=== PATIENT | male | born 1950 | race Caucasian/White ===

== ENCOUNTER 2024-01-09 17:39 | Inpatient (IN) | payer MEDICARE, OTHER, SELFPAY ==
[2024-01-09] VITALS (8 sets, daily range): BP systolic 124–163; BP diastolic 74–103; BMI 36.0
--- NOTE | 2024-01-09 15:11 | ED.GENMED ---
History of Present Illness
General
Chief Complaint: Heart Rate Problem
Source: patient and spouse
Time Seen by Provider: 01/09/24 15:00
Travel History
Have you had any contact with someone who has COVID-19?: No
Do you have any symptoms of coronavirus? Fever > 100 degrees, chills, cough, shortness of breath, sore throat, loss of taste or smell, muscle aches, or headache?: No
History of Present Illness
History of Present Illness:
73-year-old male with past medical history of hypertension, hyperlipidemia, AAA status postrepair in 2014 presenting to the emergency department from urgent care for evaluation after he has noticed over the last week some significant exertional
dyspnea, fatigue and shortness of breath. While at the urgent care today patient had a heart rate that was in the 30s which he states is abnormal for him. In triage here patient also had a heart rate of 30 but at time of my exam he noted his heart
rate was back into the 70s and 80s. No known history of bradycardia. He denies any fevers or infectious symptoms, rashes, chest pain, palpitations, diaphoresis, nausea, vomiting, bowel changes or urinary symptoms. He follows with casting operator helper,
Dr. Bettencourt. Social history noncontributory
Past History
Past History
ED Past Medical History: HTN, Hypercholesterolemia, Psychiatric and Other (AAA)
ED Past Surgical History: Cardiac, Orthopedic and Other
Social History
Tobacco: Other (Occasional)
Alcohol: Occasional
Drug: None
Personal:
Living: with family
Family History
Family History: CAD; Negative Early CAD
Review of Systems
Review of Systems
All Other Systems: ROS reviewed and negative except as documented in HPI and ROS
Phy Exam
Physical Exam
Physical Exam:
GENERAL: Alert , in no apparent distress
EYE: clear conjunctiva b/l
HEAD: NCAT
ENT: o/p clr, mmm.
CARDIAC: Regular rate and rhythm .
LUNGS: Clear breath sounds bilaterally, no acute respiratory distress, no wheezes/rales/rhonchi
ABDOMEN: Soft, without focal tenderness, no r/g, no cvat
NEUROLOGICAL: Alert and oriented
SKIN: Warm and dry, skin intact.
MUSCULOSKELETAL: Trace nonpitting ankle edema bilateral, well perfused.
PSYCH: Normal and appropriate interaction.
Scores
Heart Failure Risk
Heart Failure Risk Score: Not Applicable
Heart Score for Chest Pain Patients
STEMI patient?: Not applicable
Withdrawal Assessment of Alcohol
Withdrawal Assessment Completed?: Not applicable
Course
Orders/Labs/Results
Orders:
Orders
01/09/24 14:19
EKG [Electrocardiogram (*1)] Urgent
Reason for Study: Bradycardia / Tachycardia
EKG- Treatment ONCE
01/09/24 15:08
Add On- LAB Urgent
Tests Added?: BNP
CR Chest - 2 Views Urgent
Comment:
Reason For Exam: SOB, LUCAS
01/09/24 15:14
Complete Blood Count/With Diff Urgent
Comprehensive Metabolic Panel Urgent
NT-proBNP Urgent
Comment: ADD ON
Troponin I Urgent
01/09/24 16:35
Furosemide [Lasix] 40 mg IV NOW STA
01/09/24 17:20
Admit/Transfer Patient As Directed
Co-Sign Provider:
Level of Care: Inpatient admission
Assign to:: Telemetry
Physician / Group: Hospitalist
Diagnosis: CHF
Reason for Telemetry: Acute Heart Failure
Date to Stop Telemetry: 01/12/24
Time to Stop Telemetry: 11:00
Reason for Hospitalization: CHF
Expected length of stay greater than two midnights?: Yes
ELOS- Estimated Length of Stay in days: 2
I certify the patient meets the requirements for IP care: Yes
Code Status As Directed
Resuscitation Status: Full Code
01/09/24 17:24
Add On- LAB Stat
Tests Added?: D-dimer
01/09/24 18:00
Atorvastatin [Lipitor] 80 mg PO QPM
Ezetimibe [Zetia] 10 mg PO QPM
Flush (0.9% Sodium Chloride) [Flush (Nss)] See Dose Instructions IV PER PROTOCOL
01/10/24 08:00
Aspirin Low Dose EC [Aspir Low (Enteric Coated)] 81 mg PO DAILY
Metoprolol Xl [Toprol Xl] 50 mg PO DAILY
01/12/24 11:00
DC Protocol for Telemetry ONCE
Abnormal Lab Results
01/09/24
15:14
Abs Immat Gran (auto) 0.2 H 10^3/uL
(0-0.05)
Absolute Neuts (auto) 7.4 H 10^3/uL
(1.4-6.5)
Absolute Monos (auto) 1.1 H 10^3/uL
(0.1-0.6)
Immature Gran % 1.5 H %
(0-0.5)
Lymphocytes % 14.3 L %
(20.5-51.1)
Monocytes % 10.8 H %
(1.7-9.3)
BUN 30 H mg/dl
(9-20)
Glucose 104 H mg/dl
(70-99)
01/09/24 15:14
01/09/24 15:14
Vital Signs
Initial and Last Documented VS:
Initial Vital Signs
Temp Pulse Resp BP Pulse Ox
99.1 F 36 18 124/80 96
01/09/24 14:15 01/09/24 14:15 01/09/24 14:15 01/09/24 14:15 01/09/24 14:15
Last Documented Vital Signs
Temp Pulse Resp BP Pulse Ox
99.1 F 76 22 157/101 96
01/09/24 14:15 01/09/24 17:04 01/09/24 16:45 01/09/24 17:04 01/09/24 16:45
MDM/Problems Addressed
Differential Diagnosis Includes:
Symptomatic bradycardia, cardiac dysrhythmia, electrolyte disturbance, CHF, valvular dysfunction, ACS
MDM/Problems Addressed:
73-year-old male presenting the emergency department for evaluation of exertional dyspnea and shortness of breath/fatigue that has been ongoing for about 1 week. While at urgent care today he was noticed to be bradycardic and upon arrival to the
emergency department here he was also bradycardic but at time of my exam patient appears to be rate controlled however on telemetry he looks to be in a junctional rhythm as no P waves were identified and his twelve-lead EKG confirms this. No acute
ischemic changes. Labs and chest x-ray ordered. Patient to be kept on the nuclear monitoring technician. Ultimate plan will likely be admission for further evaluation.
*Radiology
Radiology exam reviewed: preliminary read by ED provider (Cardiomegaly)
*Pulse Oximetry
Patient hypoxic: no
*EKG
Interpreted by ED Provider?: Yes
Comparison EKG: changes noted
Heart Rate: 83
Rate: normal
Rhythm: junctional
[place]: normal axis
Ischemia: no ischemia
*Imcu Specialist Interpretation
Rate: normal
Rhythm: junctional
*Critical Care Note
Total Time (30-74mins, 75-104mins- exclusive of procedures): Not Applicable
Data Reviewed
Review of Other/Old Records Reveals: Labs and Records
Source: patient and spouse
Patient Management
Discussion with other providers: Hospitalist
Escalation/DeEscalation of care consider admission/obs:
Patient's telemetry remains a junctional rhythm. His BNP is greater than 1800 and chest x-ray shows cardiomegaly. 40 mg of Lasix IV ordered for diuresis. Hospitalist team was notified and accepts for continued evaluation and treatment. They can
consult cardiology team as needed.
ED Attending Note
-
Portions of this chart may have been created with voice recognition software.� Occasional wrong word or��sound alike� substitutions may have occurred due to the inherent limitations of voice recognition software.
Discharge Plan
Departure
Patient Disposition: Admit
Date of Disposition: 01/09/24
Time of Disposition: 16:35
Presentation/result/management discussed w/ accepting MD/DO: Hospitalist
Discharge Problem:
CHF (congestive heart failure)
Prescriptions:
No Action
metoprolol succinate 50 MG tablet extended release 24 hr
50 mg PO DAILY
multivitamin with folic acid [Tab-A-Gian] 1 TABLET tablet
1 tab PO DAILY
atorvastatin 80 mg Tablet
80 mg PO QPM
lisinopril-hydrochlorothiazide 20-12.5 mg Tablet
1 tab PO DAILY
aspirin 81 mg Tablet,Delayed Release (Dr/Ec)
81 mg PO DAILY
ezetimibe [Zetia] 10 mg Tablet
10 mg PO QPM
acetaminophen 500 MG tablet
1,000 mg PO Q6HPRN PRN (Reason: mild pain)
Referrals:
Narinder Noble DO [Family Provider] -
Interventions
Interventions:
*Risk Screen - Suicide Last Done: 01/09/24 16:54
*General Assessment Last Done: 01/09/24 14:15
*Neglect/Abuse Screening Last Done: 01/09/24 15:10
*ED COVID-19 Vaccine History Last Done: 01/09/24 14:15
ED- Cardiac Assessment Last Done: 01/09/24 15:10
ED- Pulmonary Assessment Last Done: 01/09/24 15:10
Discharge Date and Time
Print Language: MOHAWK
[2024-01-09 15:22] LABS: % Basophils 0.6 % (0-2); % Eosinophils 0.7 % (0-6); % Immature Granulocytes 1.5 % (0-0.5); % Lymphocytes 14.3 % (20.5-51.1); % Monocytes 10.8 % (1.7-9.3); % Neutrophils 72.1 % (42.2-75.2); Absolute Basophils 0.1 10^3/uL (0-0.2); Absolute Eosinophils 0.1 10^3/uL (0-0.7); Absolute Immature Granulocytes 0.2 10^3/uL (0-0.05); Absolute Lymphocytes 1.5 10^3/uL (1.2-3.4); Absolute Monocytes 1.1 10^3/uL (0.1-0.6); Absolute Neutrophils 7.4 10^3/uL (1.4-6.5); Hematocrit 44.7 % (39.0-52.0); Mean Corp Hgb Conc. 33.6 g/dL (33.0-37.0); Mean Corpuscular Hgb 30.8 pg (27.0-31.0); Mean Corpuscular Volume 91.8 fL (80.0-94.0); Mean Platelet Volume 9.1 fL (7.4-10.4); Nucleated Red Blood Cells % 0 % (-); Platelet Count 256 10^3/uL (130-400); Red Blood Cell Count 4.87 10^6/uL (4.70-6.10); Red Cell Dist. Width 13.1 % (11.5-14.5); White Blood Cell Count 10.3 10^3/uL (4.8-10.8)
[2024-01-09 15:33] LABS: ALT (SGPT) 29 U/L (0-50); AST (SGOT) 27 U/L (17-59); Albumin 4.1 g/dl (3.5-5.0); Alkaline Phosphatase 78 U/L (38-126); Blood Urea Nitrogen 30 mg/dl (9-20); Calcium 9.7 mg/dl (8.4-10.2); Carbon Dioxide 25 mmol/L (22-30); Chloride 107 mmol/L (98-107); Glucose 104 mg/dl (70-99); Potassium 4.9 mmol/L (3.5-5.1); Sodium 138 mmol/L (135-145); Total Bilirubin 0.9 mg/dl (0.2-1.3); Total Protein 6.9 g/dl (6.3-8.2); eGFR > 60.00
[2024-01-09 15:50] LABS: Troponin I < 0.012 ng/ml
[2024-01-09 16:20] LABS: NT-proBNP 1800 pg/ml
[2024-01-09] MEDS: LASIX 40 MG IV (17:04)
--- NOTE | 2024-01-09 17:06 | HPS.HSE ---
Family Physician
-
Family Physician: Narinder Noble
Chief Complaint
-
Dyspnea on exertion
History of Present Illness
This is a 73-year-old male with past medical history significant for hypertension, hyperlipidemia, obesity, AAA s/p repair who presents to the emergency department with several days of dyspnea on exertion.
Patient reported being in usual state of health up until about 2 weeks ago. He is able to walk 1 mile on the treadmill without any issues. However for about the last 5 days the patient has reported dyspnea on exertion with walking across his yard.
He reports dyspnea on exertion with walking to the restroom. He also reports some mild dyspnea on exertion with a flight of stairs. Denies any orthopnea or PND but states he has been sleeping in a lazy boy chair more recently. He reports a cough
and some postnasal drip. Denies fevers or chills. Denies productive cough. He denies any chest pain with deep inspiration or coughing. He denies any significant lower extremity edema. Spouse reported that he has mild ankle edema which has been
present for several years. Patient denies having any chest pain nausea or vomiting. Patient denies palpitations. He indeed reports an episode of feeling lightheaded while sitting and working today.
He was particularly weak today and spouse checked his blood pressure which was 90 systolic. He was then taken to urgent care. They report that at urgent care a orthopedic headache to the 30s. He was then instructed to come to the emergency
department. Patient denies any prior history of NC. He apparently had an episode of atrial fibrillation during his endovascular procedure for his AAA repair which resolved at that time and has not had any symptoms since.
On arrival in the emergency department the patient was febrile with a temp of 99.1, blood pressure was 124/80, pulse was 74 and oxygen saturation was 95% on room air. ECG showed a junctional rhythm at a rate of [address] or T wave
changes. Initial troponin was reported 012. BNP was 1800. Chest x-ray shows no acute infiltrates. CBC was completely within normal limits. Chemistries otherwise unremarkable.
Medical History
Past Medical History
Past Medical History: Reports HTN and Hypercholesterolemia
Past Surgical History: Reports Other (AAA s/p EVAR )
Social History
Tobacco: Former Smoker
Alcohol: Occasional
Drug: None
Personal:
Living: With Family
Employment: Retired
Family History
Family History: CAD and Hypertension
Allergies / Home Medications
Allergies reflects when Allergies were last updated in [employer].
Home Medications with original date entered in [employer]
Allergy/Medication List:
Allergies
Allergy/AdvReac Type Severity Reaction Status Date / Time
No Known Allergies Allergy Verified 07/06/23 07:12
Home Medications
metoprolol succinate 50 mg tablet,extended release 24 hr 50 mg PO DAILY Heart Disease/Condition 12/23/19
aspirin 81 mg tablet,delayed release 81 mg PO DAILY Blood Clot Prevention/Tx 06/30/23
atorvastatin 80 mg tablet 80 mg PO QPM High Cholesterol 06/30/23
lisinopril 20 mg-hydrochlorothiazide 12.5 mg tablet 1 tab PO HS Blood Pressure 06/30/23
Review of Systems
-
History Source: Patient
Constitutional: Reports Fatigue
Respiratory: Reports Cough and Trouble Breathing
Cardiac: Reports Other (Dyspnea on exertion)
Abdomen/GI: Reports No Symptoms
: Reports No Symptoms
Musculoskeletal: Reports No Symptoms
Skin: Reports No Symptoms
Neurological: Reports No Symptoms
Endocrine: Reports No Symptoms
Hematologic/Lymphatic: Reports No Symptoms
Psych: Reports No Symptoms
Physical Exam
Vital Signs
Vital Signs
Temp Pulse Resp BP Pulse Ox
99.1 F 74 22 147/87 96
01/09/24 14:15 01/09/24 16:45 01/09/24 16:45 01/09/24 16:42 01/09/24 16:45
Physical Exam
General: Well Developed, Well Nourished, No Apparent Distress and Obese
HEENT: NormoCephalic, Anicteric, Moist mucous membranes, Atraumatic, PERRLA and Neck Nontender
Respiratory: Clear, Non Labored Respirations and Clear to Percussion
Cardiac: S1/S2 and Regular Rhythm
Breast: Deferred by me
GI: Soft, Non Tender and Normal Bowel Sounds
Rectal: Deferred by Provider
Genito-urinary: Deferred by me
Musculoskeletal: No Clubbing, No Cyanosis and No Edema
Skin: Warm
Neuro: AO x 3
Hematologic/Lymphatic: No Lymphadenopathy
Psych: Calm
Laboratory Results
-
01/09/24 15:14
01/09/24 15:14
Laboratory Results
Total Bilirubin 0.9 mg/dl (0.2-1.3) 01/09/24 15:14
AST 27 U/L (17-59) 01/09/24 15:14
ALT 29 U/L (0-50) 01/09/24 15:14
Alkaline Phosphatase 78 U/L (38-126) 01/09/24 15:14
Troponin I < 0.012 ng/ml 01/09/24 15:14
Data Reviewed
-
Diagnostic Radiology: Image Personally Visualized and interpreted
Medical Tests (Nuc Med, Echo, EKG etc): Image Personally Visualized and interpreted
Lab Data: Labs Reviewed by me
Old Records: Reviewed
Impression/Plan
-
IMPRESSION:
73 y.o male with h/o HTN, HLD, Obesity and AAA s/p repair presenting with approximately 1 week h/o of worsening dyspnea on exertion with episode of bradycardia noted at Urgent Care clinic. Exam is unrevealing. Positive findings are the junctional
rhythm on ECG accelerated at rate 86, BNP elevated to 1800 concerning for possible new onset CHF versus symptomatic bradycardia. Cannot rule out an anginal equivalent but initial troponin is negative ruling out ACS.
PLAN:
1. CHF/ischemic heart disease - Trace ankle edema, dyspnea on exertion, elevated BNP. Normal troponin.
- admit to telemetry, monitor for emmett but patient has been hemodynamically stable.
- lasix 40mg iv daily for now
- echo in am
- cardiology consult
- continue lisinopril 20 with hold parameters
- ischemic testing with lipid panel a1c and stress test per cardiology
- check tsh
2. LUCAS - Cough but no pleuritic chest pain. Chest Xray is clear of any consolidation. No wheezing on auscultation
- cardiac etiology to be evaluated as above
- check d-dimer
- supportive care with antitussives and antiallergics
3. HTN
- continue lisinopril, hold hctz for now on lasix
- continue metoprolol succinate
DVT PPX - lovenox sq
Code Status - Full Code
[2024-01-09] MEDS: ZETIA 10 MG PO (18:35)
[2024-01-09] MEDS: LIPITOR 80 MG PO (18:35)
--- NOTE | 2024-01-09 20:40 | PTCARENOTE ---
Received patient from ED. stable vitals. No complaints at this time. Heart failure booklet provided. SR with first degree AVB Vs juctional rhythm on tele, HR in 80s. POC reviewed with patient.
[2024-01-09] MEDS: LOVENOX 40 MG SC (21:09)
[2024-01-10 03:20] VITALS: BP 112/65
[2024-01-10 06:00] VITALS: BMI 35.5
[2024-01-10 07:30] VITALS: BP 128/78
[2024-01-10 07:53] LABS: Blood Urea Nitrogen 31 mg/dl (9-20); Calcium 9.7 mg/dl (8.4-10.2); Carbon Dioxide 26 mmol/L (22-30); Chloride 105 mmol/L (98-107); Estimated Creatinine Clearance 72 ml/min; Glucose 113 mg/dl (70-99); HDL Cholesterol 49 mg/dl; LDL Cholesterol, Calculated 56 mg/dl; Potassium 4.5 mmol/L (3.5-5.1); Sodium 139 mmol/L (135-145); Total Cholesterol 131 mg/dl (50-199); Triglyceride 131 mg/dl (10-149); Very Low Density Lipoprotein 26 mg/dl (0-30); eGFR > 60.00
[2024-01-10 08:23] LABS: TSH Reflex To Free T4 1.19 uIU/ml (0.47-4.68)
[2024-01-10] MEDS: ASPIR LOW (ENTERIC COATED) 81 MG PO (08:31)
[2024-01-10] MEDS: TOPROL XL 50 MG PO (08:31)
[2024-01-10] MEDS: LASIX 40 MG IV (08:31)
[2024-01-10] MEDS: ZESTRIL 20 MG PO (08:31)
[2024-01-10] MEDS: FLUSH (NSS) 2 FLUSH IV (08:33)
[2024-01-10 11:30] VITALS: BP 119/73
--- NOTE | 2024-01-10 12:21 | W.PN.HOSP.TC ---
Today's Communication/Plan
-
see bold
Assessment / Plan
Assessment / Plan
Gen: NAD, AAOx3.
Eyes: EOMI, PERRLA, no scleral icterus.
Neck: supple.
CV: RRR, +S1/S2, no m/r/g.
Resp: CTAB, no rales, wheezes, or rhonchi.
Abd: +BS, soft, NT, ND
Skin: No rashes.
Neuro: CN 2-12 intact, non-focal.
Psych: Normal mood and affect.
CXR: Mild cardiomegaly without associated pulmonary edema.
Acute CHF/ischemic heart disease:
-on admission, trace ankle edema, dyspnea on exertion, elevated BNP. Normal troponin
-ECG (read by me): accelerated junctional rhythm at 83, no acute ischemic changes. Evidence of prior inferior infarct with Q waves in III and aVF
-trend trops, currently NEG
-c/s cards
-check echo
-cont IV Lasix
-TSH normal
-I/Os, daily wts
Mobitz II second-degree heart block:
-For echocardiogram followed by permanent pacemaker tomorrow as per discussion with Dr. Walker.
Essential HTN:
-cont BB/ACEi
Case discussed with cardiology. Patient's updated at bedside.
FULL/Lovenox
Anticipated Discharge: 24 - 48 hours
Subjective/Interval History
-
Date of Service: January 10, 2024
Denies chest pain or shortness of breath.
Objective Data
-
Labs:
Laboratory Results
01/10/24
07:02
Sodium 139
Potassium 4.5
Chloride 105
Carbon Dioxide 26
BUN 31 H
Creatinine 1.2
Glucose 113 H
Calcium 9.7
Vital Signs:
Vital Signs
Temp Pulse Resp BP Pulse Ox
97.6 F 66 20 128/78 94
01/10/24 07:30 01/10/24 07:30 01/10/24 07:30 01/10/24 07:30 01/10/24 07:30
I&O
01/09/24 01/10/24 01/11/24
06:59 06:59 06:59
Intake Total 960 / 960
Output Total 950 / 950
Balance
[2024-01-10 13:15] LABS: Troponin I < 0.012 ng/ml
--- NOTE | 2024-01-10 13:45 | CON.CAR ---
Consultation
Consultation Request
Date/Time Consultation Requested: 01/10/2024
Date/Time Consultation Performed: 01/10/2024
Requesting Provider: Dr. Call
Performing Provider: Dr. Walker
Reason for Consultation: Possible CHF, Abnormal EKG
Medical History
-
Chief Complaint: Shortness of breath, lightheadedness
History of Present Illness:
73-year-old male (known to Dr. Bonner, his primary Hyperbaric Tech) with hypertension, hyperlipidemia, obesity, and AAA status-post EVAR (07/2023) with postoperative brief/transient paroxysmal atrial fibrillation (not on systemic anticoagulation due
to lack of recurrence) presenting with shortness of breath and lightheadedness/near-syncope over the past week. The patient states that he has been noticing shortness of breath when doing things, particularly working on his yard outside. He also
has lightheadedness and blurred vision when he does exert himself himself, and almost feels like he is going to pass out. On admission the patient had junctional rhythm on EKG, and on telemetry he has what appears to be transient Mobitz 2/high
degree AV block. Cardiology was consulted for concern of CHF; his BNP was 1800.
Past Medical History
Past Medical History: HTN, Hypercholesterolemia and Other (AAA status-post EVAR)
Past Surgical History: Orthopedic (Right TKR, right hip replacement) and Other ( EVAR, umbilical hernia repair)
Social History
Tobacco: Former Smoker (Remote)
Alcohol: Daily (1 drink)
Drug: None
Personal:
Living: With Family
Employment: Retired
Family History
Family History: Reviewed & Not Pertinent
Allergies / Home Medications
Allergy/AdvReac Type Severity Reaction Status Date / Time
No Known Allergies Allergy Verified 07/06/23 07:12
�Medication �Instructions �Recorded �Confirmed �Type
metoprolol succinate 50 mg 50 mg PO DAILY Heart 12/23/19 01/09/24 History
tablet,extended release 24 hr Disease/Condition
multivitamin with folic acid 400 1 tab PO DAILY Supplement 01/02/20 01/09/24 History
mcg tablet (Tab-A-Gian)
aspirin 81 mg tablet,delayed 81 mg PO DAILY Blood Clot 06/30/23 01/09/24 History
release Prevention/Tx
atorvastatin 80 mg tablet 80 mg PO QPM High Cholesterol 06/30/23 01/09/24 History
lisinopril 20 1 tab PO DAILY Blood Pressure 06/30/23 01/09/24 History
mg-hydrochlorothiazide 12.5 mg
tablet
acetaminophen 500 mg tablet 1,000 mg PO Q6HPRN PRN mild pain 01/09/24 01/09/24 History
ezetimibe 10 mg tablet (Zetia) 10 mg PO QPM High Cholesterol 01/09/24 01/09/24 History
Review of Systems
-
History Source: Patient
All other systems: Negative unless noted
Physical Exam
Vital Signs
Temp Pulse Resp BP Pulse Ox
98.5 F 80 16 119/73 98
01/10/24 11:30 01/10/24 11:30 01/10/24 11:30 01/10/24 11:30 01/10/24 11:30
Lab Results
01/09/24 15:14
01/10/24 07:02
Troponin I < 0.012 ng/ml 01/10/24 12:40
Iec-J-Eszeebylkrc Pept 1800 pg/ml 01/09/24 15:14
Physical Exam
General: No Apparent Distress and Comfortable
HEENT: Normocephalic
Respiratory: Clear
Cardiac: S1/S2, Regular Rhythm and Peripheral Edema (Trace)
Breast: N/A
GI: Soft
Rectal: Deferred by Provider
Musculoskeletal: No Clubbing, No Cyanosis and Edema (Trace)
Skin: Warm and Dry
Neuro: AO x 3
Psych: Calm
Impression / Plan
-
73-year-old male (known to Dr. Bonner, his primary Hyperbaric Tech) with hypertension, hyperlipidemia, obesity, and AAA status-post EVAR (07/2023) with postoperative brief/transient paroxysmal atrial fibrillation (not on systemic anticoagulation due
to lack of recurrence) presenting with shortness of breath and lightheadedness/near-syncope over the past week. The patient states that he has been noticing shortness of breath when doing things, particularly working on his yard outside. He also
has lightheadedness and blurred vision when he does exert himself himself, and almost feels like he is going to pass out. On admission the patient had junctional rhythm on EKG, and on telemetry he has what appears to be transient Mobitz 2/high
degree AV block. Cardiology was consulted for concern of CHF; his BNP was 1800.
Mobitz 2/high degree AV block:
-Likely cause of patient's near-syncope.
-Patient will undergo an echocardiogram tomorrow; if unremarkable, will then undergo permanent pacemaker implantation tomorrow.
-Will hold Toprol-XL for now.
-Continue desk monitor.
-NPO after midnight.
Suspected acute CHF (BNP 1800):
-Type unknown.
-Will obtain echocardiogram tomorrow.
-Continue Lasix 40 mg IV daily for now.
Hypertension:
-Continue current dose of lisinopril.
-On Lasix as above.
Hyperlipidemia:
-Controlled.
-Continue high-dose atorvastatin and Zetia.
Obesity:
-Counseled on the importance of weight loss and regular exercise.
Data Reviewed
-
EKG: Tracing Personally Visualized and interpreted (Junctional rhythm; intermittent high-degree AV block on telemetry)
Labs: Labs Reviewed by me
Old Records: Reviewed (Cardiology office note 10/2023)
[2024-01-10 15:30] VITALS: BP 117/79
--- NOTE | 2024-01-10 15:31 | CM ---
Initial assessment completed with pt at bedside.
Pt is a 73yr old admitted with CHF. Will get pacemaker Thursday
At baseline, pt lives with his in a 2 story home with 4 steps to enter.
Pt is indep. without assistive device for all mobility and ADLs.
Pt has not ever used SNF/VN
PCP; Narinder Noble
Pharm; [facility] [phone]
PLAN; anticipate dc to home with no needs
[2024-01-10] MEDS: LIPITOR 80 MG PO (16:50)
[2024-01-10] MEDS: ZETIA 10 MG PO (16:50)
[2024-01-10] MEDS: LOVENOX SC ×2 (16:50→16:59)
[2024-01-10 19:00] VITALS: BP 112/73
[2024-01-10 23:00] VITALS: BP 99/66
[2024-01-11] VITALS (9 sets, daily range): BP systolic 98–152; BP diastolic 58–99; BMI 35.8
--- NOTE | 2024-01-11 07:25 | W.PN.CD ---
Today's Communication / Plan
-
- PPM today
Impression / Plan
-
73-year-old male (known to Dr. Bonner, his primary Inside Sales Executive) with hypertension, hyperlipidemia, obesity, and AAA status-post EVAR (07/2023) with postoperative brief/transient paroxysmal atrial fibrillation (not on systemic anticoagulation due
to lack of recurrence) presenting with shortness of breath and lightheadedness/near-syncope over the past week. The patient states that he has been noticing shortness of breath when doing things, particularly working on his yard outside. He also
has lightheadedness and blurred vision when he does exert himself himself, and almost feels like he is going to pass out. On admission the patient had junctional rhythm on EKG, and on telemetry he has what appears to be transient Mobitz 2/high
degree AV block. Cardiology was consulted for concern of CHF; his BNP was 1800.
Mobitz 2/high degree AV block:
-Likely cause of patient's near-syncope.
-Will hold Toprol-XL for now. restart post implant
-Continue patient monitor.
-PPM today
Suspected acute CHF (BNP 1800):
-HFpEF - could be related to conduction diseaese
-ECHO 01/11/24- LVEF 60% - Normal biventricular size and systolic function without regional wall motion
abnormality.
Mitral sclerosis without stenosis..
-Continue Lasix 40 mg IV daily for now.
Hypertension:
-Continue current dose of lisinopril.
-On Lasix as above.
Hyperlipidemia:
-Controlled.
-Continue high-dose atorvastatin and Zetia.
Obesity:
-Counseled on the importance of weight loss and regular exercise.
Physical Exam
Vital Signs/Labs
Vital Signs
Temp Pulse Resp BP Pulse Ox
98.3 F 75 16 107/68 95
01/11/24 03:00 01/11/24 03:00 01/11/24 03:00 01/11/24 03:00 01/11/24 03:00
01/10/24 01/11/24 01/12/24
06:59 06:59 06:59
Actual Weight 118.473 kg 119.522 kg
01/09/24 15:14
Triglycerides 131 mg/dl (10-149) 01/10/24 07:02
LDL Cholesterol, Calc 56 mg/dl 01/10/24 07:02
VLDL Cholesterol, Calc 26 mg/dl (0-30) 01/10/24 07:02
HDL Cholesterol 49 mg/dl 01/10/24 07:02
01/09/24
15:14
Zjr-W-Ubsqjjinkfg Pept 1800
LAB Results
01/09/24 01/10/24
15:14 12:40
Troponin I < 0.012 < 0.012
Physical Exam
Constitutional: No acute distress and Comfortable
EENT: Anicteric and Moist mucous membranes
Cardiovascular: Rhythm & rate is regular, Pedal edema is absent and JVD pressure is normal
Respiratory: Respiratory effort normal, Wheeze Absent and Crackles Absent
GI: Soft, Non tender and Normal bowel sounds
Neuro/Psych: Alert, Oriented, AO x 3 and Motor deficits absent
Other: Cardiac Device Site
Data Reviewed
-
Date of Service: January 11, 2024
Medical Decision Making: Reviewed Test Results, Independent Historian Assessment, Test Interpretation and Review of Case with other Provider
EKG: Tracing Personally Visualized and interpreted
Echo: Report Reviewed by me
Labs: Labs Reviewed by me
Old Records: Reviewed
--- NOTE | 2024-01-11 07:54 | W.PN.HOSP.TC ---
Today's Communication/Plan
-
see bold, discussed with cardiology
Assessment / Plan
Assessment / Plan
Gen: NAD, AAOx3.
Eyes: EOMI, PERRLA, no scleral icterus.
Neck: supple.
CV: remains RRR, +S1/S2, no m/r/g.
Resp: remains CTAB, no rales, wheezes, or rhonchi.
Abd: remains +BS, soft, NT, ND
Skin: No rashes.
Neuro: CN 2-12 intact, non-focal.
Psych: Normal mood and affect.
CXR: Mild cardiomegaly without associated pulmonary edema.
Echo: Normal biventricular size and systolic function without regional wall motion abnormality. Mitral sclerosis without stenosis.
Acute CHF/ischemic heart disease:
-on admission, trace ankle edema, dyspnea on exertion, elevated BNP. Normal troponin
-ECG (read by me): accelerated junctional rhythm at 83, no acute ischemic changes. Evidence of prior inferior infarct with Q waves in III and aVF
-Trops NEG x 2
-cards following
-echo above
-cont IV Lasix
-TSH normal
-I/Os, daily wts
Mobitz II second-degree heart block:
-For permanent pacemaker (hopefully today)
Essential HTN:
-cont BB/ACEi
Pt's updated at bedside.
FULL/Lovenox
Anticipated Discharge: 24 - 48 hours
Subjective/Interval History
-
Date of Service: January 11, 2024
Denies CP/SOB.
Objective Data
-
Labs:
Laboratory Results
01/11/24
07:07
Sodium Pending
Potassium Pending
Chloride Pending
Carbon Dioxide Pending
BUN Pending
Creatinine Pending
Glucose Pending
Calcium Pending
Vital Signs:
Vital Signs
Temp Pulse Resp BP Pulse Ox
97.9 F 66 16 128/73 96
01/11/24 07:05 01/11/24 07:05 01/11/24 07:05 01/11/24 07:05 01/11/24 07:05
I&O
01/10/24 01/11/24 01/12/24
06:59 06:59 06:59
Intake Total 960 / 960 1050 / 1050
Output Total 950 / 950 1350 / 1350
Balance -300 / -300
[2024-01-11] MEDS: LASIX 40 MG IV (07:58)
[2024-01-11] MEDS: ASPIR LOW (ENTERIC COATED) 81 MG PO (07:58)
[2024-01-11] MEDS: ZESTRIL 20 MG PO (07:58)
[2024-01-11 08:30] LABS: Blood Urea Nitrogen 35 mg/dl (9-20); Calcium 9.6 mg/dl (8.4-10.2); Carbon Dioxide 31 mmol/L (22-30); Chloride 102 mmol/L (98-107); Estimated Creatinine Clearance 66 ml/min; Glucose 115 mg/dl (70-99); Sodium 140 mmol/L (135-145); eGFR 57.29
--- NOTE | 2024-01-11 08:35 | CARDSERVLU ---
Echocardiogram with Lumason completed after protocol screening completed. Allergies verified.
Patent IV site: ____left AC
IV site flushed with 0.9% NaCl pre and post administration.
Diluted bolus method utilized to enhance visualization of ventricular alfaro.
Total volume given: ___4.0 mL
Patient tolerated all procedures well without complications.
--- NOTE | 2024-01-11 10:02 | CM ---
Reviewed chart, patient for pacemaker placement today. Will f/u post procedure.
Plan: Case management will continue to follow and assist with discharge planning. Tentative plan is for patient to return home when medically clered for discharge.
--- NOTE | 2024-01-11 16:49 | ITS.CL.PACE ---
Mechanical Test Engineer - Pacemaker Implant
Pacemaker Implant
Procedure Report:
Dual Chamber Pacemaker Placement:
Mr. Simpson is a very pleasant 74 yrs old gentleman with h/o post op AFIB, hypertension, hyperlipidemia, obesity, and AAA status-post EVAR (07/2023) presented with advanced AV block and pre-syncope and is recommended for PPM placement.�
Indications: Advanced AV block
Date of the Procedure: 01/11/2024
Pre-Operative Diagnosis: High degree AV block
Post-Operative Diagnosis: High degree AV block
Procedure Performed: DUAL CHAMBER PACEMAKER IMPLANTATION
Performing Physician:
Abrahan Olson MD
Anesthesia:
See anesthesia records
Pre-operative antibiotics:
Ancef 3 gram
Detailed Description of the Procedure:
The patient was identified using hospital identification and informed consent obtained for the procedure. The risks were explained including, but not limited to: Bleeding, infection, arrhythmia, stroke, vascular/cardiac/lung puncture, surgery,
pacemaker dependency/device malfunction. All questions were answered.
The patient was brought to the electrophysiology laboratory in stable condition in fasting state. Continuous electrocardiographic and hemodynamic monitoring was initiated.
The initial rhythm was sinus rhythm.
The procedure site was meticulously prepared with surgical scrub and allowed to dry with no pooling. Sterile draping was applied to cover the procedure site. The image intensifier was draped with sterile bag and positioned over the patient.
A surgical pause and time out was performed immediately prior to the procedure with review of her medical history, recent labs, allergies and medications with site of procedure identified and consent noted in the chart. Antibiotics pre operatively
given. All team members concurred.
The left infraclavicular region was prepped and draped in the usual sterile fashion. Local anesthesia was administered subcutaneously using 1% lidocaine / Bupivacaine. The left cephalic vein cutdown was performed with an incision at the
delto-pectoral groove, and vascular sheaths were introduced for lead access. These were advanced into the right ventricle and the right atrium.
The right ventricular lead was secured in position with an active fixation technique at the septal location.
The RA lead was attached in the right atrial appendage with active fixation in the RAA.
There was excellent sensing, pacing, and impedance from the leads, with no diaphragmatic stimulation at 10 V output.�Bovie cautery, antibiotics, and fluoroscopy were used.
The sheaths were withdrawn, and the thresholds remained acceptable. The leads were secured in position at the venous entry site with 0-Ethibond. A pocket was fashioned contiguous to the incision. The electrode terminals were connected to the pulse
generator, which was placed into the pocket. The generator was secured to the underlying fascia.
The wound was irrigated thoroughly with antibiotic solution.
The wound was closed in 3 layers using 2-0 V loc then two layers of 4-0 VLoc sutures to the dermis. Steri-strips were applied externally and covered with Aquacel bandage.
Procedure End:
The procedure was tolerated well.
Estimated Blood loss:
5 cc
Specimens Removed:
No cultures and no specimens were obtained. No intraoperative pathology was identified.
Urine output:
None
Packs / Drains/ Tubes:
None
Instrument / Sponge Count Correct:
Yes
Complications of the Procedure:
None
Condition of Patient at Time of Transfer:
Hemodynamically stable with no neurological or vascular compromise.
Device information:�
Generator: [employer]; Model: [id number]; Serial #[id number]
Atrial Lead: [employer]; Model: 2088TC/52; Serial # [id number]
Measured data in the right atrium was sensing of 2.1mV, impedance of 510 ohms and threshold of 0.75V at 0.4ms�
RV Lead: [employer]; Model: 2088TC/58; Serial # [id number]
Measured data in the RV lead was sensing of >12.0 mV, impedance of 700 ohms and threshold of 1.0 V at 0.4ms�
Tyshawn parameter settings were DDDR 60-130 bpm. �
��������������� Mode Switch: On
��������������� Paced AV interval: 420ms
��������������� Sensed AV interval: 400 ms.
��������������� VIP: On
Summary:
Successful implantation of MRI compatible dual chamber St Mannie pacemaker
Results/Recommendations:
-Please follow up CXR�
1. Please provide patient with adequate pain control�
Instructions to be given to patient:�
- Please follow up with [facility] at [address] [place] [address] ([phone]) to get your wound checked within 14 days of your discharge.
- Do not wet incision site until after it is evaluated at cardiology clinic. No soaking or bath until then. Showers or Sponge baths are OK.�Dab dry the area after a shower.
- Do not lift left elbow above shoulder, particularly with sudden jerking movements, for 1 month�
- Do not lift anything weighing more than 10 pounds with the left arm for 1 month�
- If you notice any fevers, shortness of breath, lightheadedness, chest pain, or worsening swelling in the wound site, please contact the arrhythmia clinic, contact your sales technician home theater, or present to the hospital for evaluation.�
Abrahan Olson MD
Electrophysiology
[2024-01-11] MEDS: ZETIA 10 MG PO (18:00)
[2024-01-11] MEDS: LIPITOR 80 MG PO (18:00)
[2024-01-11] MEDS: LOVENOX 40 MG SC (18:00)
[2024-01-11] MEDS: TYLENOL 650 MG PO (20:31)
[2024-01-11] MEDS: ANCEF 5 IV (21:17)
[2024-01-12 03:13] VITALS: BP 125/81
[2024-01-12] MEDS: ANCEF 5 IV (05:18)
[2024-01-12 05:51] VITALS: BMI 35.7
[2024-01-12 07:25] LABS: Hematocrit 47.8 % (39.0-52.0); Hemoglobin 16.2 g/dL (13.0-18.0); Mean Corp Hgb Conc. 33.9 g/dL (33.0-37.0); Mean Corpuscular Hgb 29.8 pg (27.0-31.0); Mean Platelet Volume 8.8 fL (7.4-10.4); Platelet Count 280 10^3/uL (130-400); Red Blood Cell Count 5.43 10^6/uL (4.70-6.10); White Blood Cell Count 10.9 10^3/uL (4.8-10.8)
[2024-01-12 07:28] VITALS: BP 142/95
[2024-01-12 07:52] LABS: Blood Urea Nitrogen 41 mg/dl (9-20); Calcium 9.6 mg/dl (8.4-10.2); Carbon Dioxide 21 mmol/L (22-30); Chloride 104 mmol/L (98-107); Estimated Creatinine Clearance 71 ml/min; Glucose 134 mg/dl (70-99); Sodium 136 mmol/L (135-145); eGFR > 60.00
[2024-01-12] MEDS: ZESTRIL 20 MG PO (08:19)
[2024-01-12] MEDS: LASIX 40 MG IV (08:19)
[2024-01-12] MEDS: ASPIR LOW (ENTERIC COATED) 81 MG PO (08:19)
--- NOTE | 2024-01-12 09:58 | W.PN.HOSP.TC ---
Addendum entered and electronically signed by Alexandre Call MD 01/12/24 11:24:
Case discussed with Dr. Olson and he has cleared the pt for discharge.
Total time spent on d/c = 32 min. This included today's physical exam, progress note, review of laboratory and diagnostic data, preparation of discharge documents and prescriptions, and discussions about the pt's hospital course and discharge plan
with the patient and other medical transcriber involved in the patient's care.
Original Note:
Today's Communication/Plan
-
see bold
Assessment / Plan
Assessment / Plan
Gen: NAD, AAOx3.
Eyes: EOMI, PERRLA, no scleral icterus.
Neck: supple.
CV: continues to remain RRR, +S1/S2, no m/r/g.
Resp: continues to remain CTAB, no rales, wheezes, or rhonchi.
Abd: continues to remain +BS, soft, NT, ND
Skin: No rashes.
Neuro: CN 2-12 intact, non-focal.
Psych: Normal mood and affect.
CXR: Mild cardiomegaly without associated pulmonary edema.
Echo: Normal biventricular size and systolic function without regional wall motion abnormality. Mitral sclerosis without stenosis.
Acute CHF/ischemic heart disease:
-on admission, trace ankle edema, dyspnea on exertion, elevated BNP. Normal troponin
-ECG (read by me): accelerated junctional rhythm at 83, no acute ischemic changes. Evidence of prior inferior infarct with Q waves in III and aVF
-Trops NEG x 2
-cards following
-echo above
-cont IV Lasix
-TSH normal
-I/Os, daily wts
Mobitz II second-degree heart block:
-s/p dual chamber PPM On 01/11/24
Essential HTN:
-cont BB/ACEi
Pt's updated at bedside.
FULL/Lovenox
Medically cleared for d/c if OK with cardiology.
Anticipated Discharge: Today
Subjective/Interval History
-
Date of Service: January 12, 2024
Denies CP/SOB.
Objective Data
-
Labs:
Laboratory Results
01/12/24
06:55
WBC 10.9 H
Hgb 16.2
Hct 47.8
Plt Count 280
Sodium 136
Potassium 5.0
Chloride 104
Carbon Dioxide 21 L
BUN 41 H
Creatinine 1.2
Glucose 134 H
Calcium 9.6
Vital Signs:
Vital Signs
Temp Pulse Resp BP Pulse Ox
97.8 F 78 18 142/95 93
01/12/24 07:28 01/12/24 08:19 01/12/24 07:28 01/12/24 08:19 01/12/24 07:28
I&O
01/11/24 01/12/24 01/13/24
06:59 06:59 06:59
Intake Total 1050 / 1050 500 / 500
Output Total 1350 / 1350 350 / 350
Balance -300 / -300 150 / 150
[2024-01-12 11:20] VITALS: BP 123/81
--- NOTE | 2024-01-12 13:07 | W.DCSUMMARY ---
Discharge Summary
Discharge Data
Date of Admission: 01/09/24
Date of Discharge: 01/12/24
-
Pending Results: No
Hospital Course
Primary diagnoses:
Mobitz II second-degree heart block s/p dual chamber permanent pacemaker placement on 01/11/24
Secondary diagnoses:
Essential hypertension
Obesity due to excess calories
Consultants:
Cardiology
Imaging:
CXR: Mild cardiomegaly without associated pulmonary edema.
Echo: Normal biventricular size and systolic function without regional wall motion abnormality. Mitral sclerosis without stenosis.
Hospital course: 74-year-old male who presented with a chief complaint of dyspnea on exertion as outlined in the H&P done on admission. He had an elevated BNP and a normal troponins. ECG (read by me): accelerated junctional rhythm at 83, no acute
ischemic changes. Evidence of prior inferior infarct with Q waves in III and aVF. Patient was diuresed with IV Lasix. Echocardiogram above. Patient was found to be in Mobitz type II second-degree heart block and underwent pacemaker placement on
January 11, 2024. The patient was discharged in medically stable condition.
Discharge Plan
-
Patient Disposition: Home (Routine Discharge)
Discharge Diagnosis/Procedures: Acute heart failure with preserved ejection fraction, high degree heart block status post pacemaker implant
Condition: Good
Diet: Other diet
Additional Diets: Heart healthy, fluid restrict to 1500 cc/day
Activity: With assistance and As tolerated
Driving Restrictions: As prior to admission
Bathing Restrictions: None
Specialty Instructions: Weigh Daily- Call MD for wt gain/loss 3 lbs overnight/5 lbs in 1 week
Stand Alone Forms: DC Inst - Implanted Device
Referrals:
[facility]- [facility] [Provider Group] - 01/20/24 1:00 pm (Post device incision check appointment)
Narinder Noble DO [Family Provider] - in less than 1 week
Prescriptions:
New
furosemide [Lasix] 20 mg tablet
20 mg PO DAILY PRN (Reason: weight gain > 3lbs) Qty: 30 0RF
Continued
metoprolol succinate 50 MG tablet extended release 24 hr
50 mg PO DAILY
multivitamin with folic acid [Tab-A-Gian] 1 TABLET tablet
1 tab PO DAILY
atorvastatin 80 mg Tablet
80 mg PO QPM
lisinopril-hydrochlorothiazide 20-12.5 mg Tablet
1 tab PO DAILY
aspirin 81 mg Tablet,Delayed Release (Dr/Ec)
81 mg PO DAILY
ezetimibe [Zetia] 10 mg Tablet
10 mg PO QPM
acetaminophen 500 MG tablet
1,000 mg PO Q6HPRN PRN (Reason: mild pain)
Discharge Orders:
Discharge Patient (As Directed); Ordered 01/12/24
Ordered By: Alexandre Call
Discharge Date and Time
Discharge Date/Time: 01/12/24 13:05
Print Language: MOHAWK
--- NOTE | 2024-01-13 14:06 | W.HF.CON ---
Heart Failure
- LV Function
Left ventricular function study result: LV Ejection fraction >40%
Ejection Fraction Percentage: 60
- ARNI
Patient already on ARNI: No
Heart Failure ARNI Not Indicated: LV Ejection Fraction >/= 40%
- ACEI/ARB
Patient already on ACEI/ARB: Yes
- Beta Germania
Patient already on Evidence Based Beta Germania: Yes
- Mineralocorticord Receptor Antagonist
Patient already on MRA: No
Heart Failure MRA Not Indicated: LV Ejection Fraction > 40%
- SGLT-2 Inhibitor
Patient already on SGLT-2 Inhibitor: No
Heart Failure SGLT-2 Inhibitor Not Indicated: LV Ejection Fraction >40%
- NYHA CHF Classification
NYHA CHF Classification Level: Class III - Symptoms w/ min exertion, interferes w/ nml daily activity
- ACC/AHA Stage
ACC/AHA Stage: Stage C: Symptomatic Heart Failure
== END 2024-01-12 13:05 | disposition home or self-care (01) | DRG 242 ==
LOC: 3 WEST ACU 17:39
PROVIDERS: Anesthesiology; Nurse Practitioner; ADMITTING PHYSICIAN Internal Medicine; ATTENDING PHYSICIAN Internal Medicine; CONSULT PHYSICIAN Internal Medicine; EMERGENCY PHYSICIAN Emergency Medicine; FAMILY PHYSICIAN Family Medicine
PROC: 02H63JZ Insertion of Pacemaker Lead into Right Atrium, Percutaneous Approach (ICD-10-PCS; 2024-01-11)
PROC: 02HK3JZ Insertion of Pacemaker Lead into Right Ventricle, Percutaneous Approach (ICD-10-PCS; 2024-01-11)
PROC: 0JH606Z Insertion of Pacemaker, Dual Chamber into Chest Subcutaneous Tissue and Fascia, Open Approach (ICD-10-PCS; 2024-01-11)
DX: I44.1 Atrioventricular block, second degree (principal); I50.31 Acute diastolic (congestive) heart failure; Z87.891 Personal history of nicotine dependence; I11.0 Hypertensive heart disease with heart failure; E78.00 Pure hypercholesterolemia, unspecified; E66.09 Other obesity due to excess calories; I25.10 Atherosclerotic heart disease of native coronary artery without angina pectoris; Z68.35 Body mass index [BMI] 35.0-35.9, adult
CPT/HCPCS: 33208; 71045; 71046; 80048; 80053; 80061; 83880; 84443; 84484; 85025; 85027; 93005; 93306; 96374; 99285; C1785; C1892; C1898; Q9950

== ENCOUNTER → 2024-02-08 11:17 | Outpatient (REF) | payer MEDICARE, OTHER, SELFPAY ==
[2024-02-08 14:02] LABS: PSA, Total - Diagnostic 8.48 ng/ml (0.0-4.0)
== END ==
LOC: REG 11:17
PROVIDERS: ATTENDING PHYSICIAN Specialist; REFERRING PHYSICIAN Family Medicine
DX: R97.20 Elevated prostate specific antigen [PSA] (principal)
CPT/HCPCS: 36415; 84153

== ENCOUNTER → 2024-03-01 08:40 | Outpatient (REF) | payer MEDICARE, OTHER, SELFPAY ==
[2024-03-01 09:51] LABS: Urine Albumin Negative (Neg - Trace); Urine Bilirubin Negative (Negative); Urine Character Clear (Clear); Urine Color Yellow; Urine Glucose Negative (Negative); Urine Ketone Negative (Negative); Urine Leukocyte Negative (Negative); Urine Nitrite Negative (Negative); Urine Occult Blood Negative (Negative); Urine Urobilinogen Negative (Neg - 1+); Urine pH 6.5 (5.0-9.0)
[2024-03-01 09:53] LABS: % Basophils 0.9 % (0-2); % Eosinophils 1.9 % (0-6); % Immature Granulocytes 0.4 % (0-0.5); % Lymphocytes 21.6 % (20.5-51.1); % Monocytes 9.5 % (1.7-9.3); % Neutrophils 65.7 % (42.2-75.2); Absolute Basophils 0.1 10^3/uL (0-0.2); Absolute Eosinophils 0.1 10^3/uL (0-0.7); Absolute Lymphocytes 1.5 10^3/uL (1.2-3.4); Absolute Monocytes 0.6 10^3/uL (0.1-0.6); Absolute Neutrophils 4.5 10^3/uL (1.4-6.5); Hematocrit 45.7 % (39.0-52.0); Hemoglobin 15.3 g/dL (13.0-18.0); Mean Corp Hgb Conc. 33.5 g/dL (33.0-37.0); Mean Corpuscular Hgb 30.5 pg (27.0-31.0); Mean Platelet Volume 9.1 fL (7.4-10.4); Nucleated Red Blood Cells % 0 % (-); Platelet Count 243 10^3/uL (130-400); Red Blood Cell Count 5.02 10^6/uL (4.70-6.10); Red Cell Dist. Width 13.1 % (11.5-14.5); White Blood Cell Count 6.8 10^3/uL (4.8-10.8)
[2024-03-01 10:24] LABS: ALT (SGPT) 32 U/L (0-50); AST (SGOT) 30 U/L (17-59); Albumin 4.5 g/dl (3.5-5.0); Alkaline Phosphatase 76 U/L (38-126); Blood Urea Nitrogen 37 mg/dl (9-20); Calcium 9.9 mg/dl (8.4-10.2); Carbon Dioxide 28 mmol/L (22-30); Chloride 105 mmol/L (98-107); Glucose 103 mg/dl (70-99); HDL Cholesterol 50 mg/dl; LDL Cholesterol, Calculated 57 mg/dl; Potassium 5.5 mmol/L (3.5-5.1); Sodium 138 mmol/L (135-145); Total Cholesterol 128 mg/dl (50-199); Total Protein 7.2 g/dl (6.3-8.2); Triglyceride 106 mg/dl (10-149); Very Low Density Lipoprotein 21 mg/dl (0-30); eGFR > 60.00
[2024-03-01 12:04] LABS: Glycohemoglobin (HgbA1c) 6.1 % (4.0-5.6)
[2024-03-01 12:13] LABS: TSH 0.94 uIU/ml (0.47-4.68)
== END ==
LOC: REG 08:40
PROVIDERS: ATTENDING PHYSICIAN Family Medicine
DX: Z00.00 Encounter for general adult medical examination without abnormal findings (principal); I10 Essential (primary) hypertension; E78.5 Hyperlipidemia, unspecified; I48.0 Paroxysmal atrial fibrillation; E66.9 Obesity, unspecified; R73.01 Impaired fasting glucose; M16.0 Bilateral primary osteoarthritis of hip; N40.1 Benign prostatic hyperplasia with lower urinary tract symptoms; I65.23 Occlusion and stenosis of bilateral carotid arteries; I71.40 Abdominal aortic aneurysm, without rupture, unspecified; I50.9 Heart failure, unspecified; Z13.5 Encounter for screening for eye and ear disorders
CPT/HCPCS: 36415; 70030; 80053; 80061; 81003; 83036; 84443; 85025

== ENCOUNTER 2024-03-03 21:48 | Emergency (ER) | payer MEDICARE, OTHER, SELFPAY ==
[2024-03-03 21:48] VITALS: BMI 35.5
[2024-03-03 22:04] VITALS: BP 107/56
--- NOTE | 2024-03-03 22:37 | ED.GENMED ---
History of Present Illness
General
Chief Complaint: Abnormal Lab Value
Source: patient and spouse
Time Seen by Provider: 03/03/24 22:24
History of Present Illness
History of Present Illness:
74-year-old male presents emergency department after seeing his PCP today for a 6-month checkup, had labs drawn, and was notified that his potassium is elevated. Patient feels perfectly well without any complaints. He denies any changes to his
medications or history of renal insufficiency/failure. He denies chest pain, shortness of breath, dizziness, nausea, vomiting, or other complaints.
Past History
Past History
ED Past Medical History: HTN, Hypercholesterolemia, Psychiatric and Other (AAA)
ED Past Surgical History: Cardiac, Orthopedic and Other (AAA repair)
Social History
Tobacco: Other (Occasional)
Alcohol: Occasional
Drug: None
Personal:
Living: with family
Family History
Family History: CAD; Negative Early CAD
Phy Exam
Physical Exam
Physical Exam:
GENERAL: Alert , in no apparent distress
EYE: pupils equal and reactive
NECK: Supple, no significant adenopathy.
ENT: o/p clr, mmm.
CARDIAC: Regular rate and rhythm .
LUNGS: Clear breath sounds bilaterally, no acute respiratory distress, no wheezes/rales/rhonchi
ABDOMEN: Soft, without focal tenderness, no r/g, no cvat
NEUROLOGICAL: Alert and oriented, no focal neuro deficits
SKIN: Warm and dry, skin intact.
MUSCULOSKELETAL: Trace edema, well perfused.
PSYCH: Normal and appropriate interaction.
Course
Orders/Labs/Results
Orders:
Orders
03/03/24 22:08
ECG [Electrocardiogram (*1)] Urgent
Reason for Study: Other
Other Reason for Exam: hyperkalemia
Cardiology Consult: Unknown
03/03/24 22:09
EKG- Treatment ONCE
03/03/24 22:45
Complete Blood Count/No Diff Urgent
Comprehensive Metabolic Panel Urgent
Magnesium Urgent
Phos [Phosphorus] Urgent
Abnormal Lab Results
03/03/24
22:45
BUN 38 H mg/dl
(9-20)
Creatinine 1.4 H mg/dL
(0.7-1.3)
Glucose 124 H mg/dl
(70-99)
03/03/24 22:45
03/03/24 22:45
Vital Signs
Initial and Last Documented VS:
Initial Vital Signs
Temp Pulse Resp BP Pulse Ox
98.0 F 82 20 107/56 96
03/03/24 22:04 03/03/24 22:04 03/03/24 22:04 03/03/24 22:04 03/03/24 22:04
Last Documented Vital Signs
Temp Pulse Resp BP Pulse Ox
98.0 F 76 24 107/56 98
03/03/24 22:04 03/03/24 23:19 03/03/24 23:19 03/03/24 22:04 03/03/24 23:19
*Critical Care Note
Total Time (30-74mins, 75-104mins- exclusive of procedures): Not Applicable
Update Note
Update Note:
Patient presents to the Emergency Department with __reported hyperkalemia
Number and Complexity of Problems Addressed at the Encounter
� Chronic conditions affecting care:
� Acute Exacerbation and/or Progression of Chronic Illness:
� Differential Diagnosis includes: But not limited to lab error, medication effect, renal insufficiency, etc.
Amount and/or Complexity of Data to be Reviewed and Analyzed
� I performed an independent evaluation of and my interpretation is:
EKG: Read by me, normal sinus rhythm, normal rate, first-degree block, QRS not widened, no acute ischemia
CT:
Xrays:
Laboratory Studies: Potassium normal, slight elevation of creatinine 1.4, prerenal azotemia suggesting mild dehydration
Other:
� Review of other/old records reveals: Discharge summary from January patient had a pacer for heart block and mild heart failure requiring IV Lasix
� Clinical information was obtained by an independent historian:
� Prescriptions/Medications Considered but not given:
� Further testing considered but not performed:
Risk of Complications and/or Morbidity or Mortality of Patient Management
� Social determinants of health affecting care:
� Discussion with other providers (PCP, Hospitalists, Consultants, etc): [place] text from Dr. ovalle reviewed 'Luther Simpson 1950
elevated potassium 6.3 up from 5.5 two days ago. referred to ED for treatment
Pt of Dr Noble
� Escalation of care including admission/observation vs risk of discharge considered: Labs print out for patient, long discussion regarding varying potassium levels. In review of his medications he is on an UMM inhibitor but
also hctz, and I doubt meds contributing to this. D/w pt import of f/u and raesons to rted.
ED Attending Note
-
Portions of this chart may have been created with voice recognition software.� Occasional wrong word or��sound alike� substitutions may have occurred due to the inherent limitations of voice recognition software.
Discharge Plan
Departure
Patient Disposition: Home (Routine Discharge)
Date of Disposition: 03/03/24
Time of Disposition: 23:31
Patient with high blood pressure during this ER visit?: No
Condition: Good
Discharge Problem:
hyperkalemia, resolved
Instructions: Dehydration, Adult (DC)
Prescriptions:
No Action
metoprolol succinate 50 MG tablet extended release 24 hr
50 mg PO DAILY
multivitamin with folic acid [Tab-A-Gian] 1 TABLET tablet
1 tab PO DAILY
atorvastatin 80 mg Tablet
80 mg PO QPM
lisinopril-hydrochlorothiazide 20-12.5 mg Tablet
1 tab PO DAILY
aspirin 81 mg Tablet,Delayed Release (Dr/Ec)
81 mg PO DAILY
ezetimibe [Zetia] 10 mg Tablet
10 mg PO QPM
acetaminophen 500 MG tablet
1,000 mg PO Q6HPRN PRN (Reason: mild pain)
furosemide [Lasix] 20 mg tablet
20 mg PO DAILY PRN (Reason: weight gain > 3lbs) Qty: 30 0RF
Referrals:
Narinder Noble DO [Family Provider] - Tomorrow
Activity Restrictions/Additional Instructions:
YOUR POTASSIUM WAS MEASURED ABNORMALLY ELEVATED EARLIER TODAY, BUT TONIGHT'S VALUE WAS NORMAL. PLEASE SEE ATTACHED LAB RESULTS. BRING THESE RESULTS TO YOUR PRIMARY CARE DOCTOR TOMORROW. PLEASE STAY WELL-HYDRATED. IF YOU DEVELOP DIZZINESS,
WEAKNESS, NAUSEA, VOMITING, CHEST PAIN, PALPITATIONS, OR OTHER WORRISOME SIGNS, PLEASE RETURN TO THE ER IMMEDIATELY.
Interventions
Interventions:
*Risk Screen - Suicide Last Done: 03/03/24 22:04
*General Assessment Last Done: 03/03/24 22:04
*Neglect/Abuse Screening Last Done: 03/03/24 22:04
ED- Fall Risk Assessment Last Done: 03/03/24 22:04
*ED COVID-19 Vaccine History Last Done: 03/03/24 22:04
Discharge Date and Time
Print Language: PANAMANIAN
[2024-03-03 22:52] LABS: Hematocrit 41.6 % (39.0-52.0); Hemoglobin 14.6 g/dL (13.0-18.0); Mean Corp Hgb Conc. 35.1 g/dL (33.0-37.0); Mean Corpuscular Hgb 30.7 pg (27.0-31.0); Mean Corpuscular Volume 87.4 fL (80.0-94.0); Platelet Count 241 10^3/uL (130-400); Red Blood Cell Count 4.76 10^6/uL (4.70-6.10); White Blood Cell Count 8.2 10^3/uL (4.8-10.8)
[2024-03-03 23:07] LABS: ALT (SGPT) 31 U/L (0-50); AST (SGOT) 33 U/L (17-59); Albumin 4.4 g/dl (3.5-5.0); Alkaline Phosphatase 76 U/L (38-126); Blood Urea Nitrogen 38 mg/dl (9-20); Calcium 9.7 mg/dl (8.4-10.2); Carbon Dioxide 26 mmol/L (22-30); Chloride 107 mmol/L (98-107); Glucose 124 mg/dl (70-99); Phosphorus 3.4 mg/dl (2.5-4.5); Potassium 4.2 mmol/L (3.5-5.1); Sodium 140 mmol/L (135-145); Total Bilirubin 0.8 mg/dl (0.2-1.3); eGFR 52.41
== END 2024-03-03 23:45 | disposition home or self-care (01) ==
LOC: EMR 21:48
PROVIDERS: EMERGENCY PHYSICIAN Emergency Medicine; FAMILY PHYSICIAN Family Medicine
DX: E87.5 Hyperkalemia (principal)
CPT/HCPCS: 99284; 80053; 83735; 84100; 84132; 85027; 93005

== ENCOUNTER → 2024-05-23 13:41 | Outpatient (REF) | payer MEDICARE, OTHER, SELFPAY | LOC: MRI 13:41 | PROVIDERS: ATTENDING PHYSICIAN Specialist; FAMILY PHYSICIAN Family Medicine | DX: R97.20 Elevated prostate specific antigen [PSA] (principal) | CPT/HCPCS: 72197; A9575 ==

== ENCOUNTER → 2024-07-11 07:54 | Outpatient (REF) | payer MEDICARE, OTHER, SELFPAY ==
[2024-07-11 08:54] LABS: Blood Urea Nitrogen 35 mg/dl (9-20); Calcium 9.9 mg/dl (8.4-10.2); Carbon Dioxide 27 mmol/L (22-30); Chloride 108 mmol/L (98-107); Glucose 113 mg/dl (70-99); Potassium 4.7 mmol/L (3.5-5.1); Sodium 142 mmol/L (135-145); eGFR > 60.00
== END ==
LOC: REG 07:54
PROVIDERS: ATTENDING PHYSICIAN Surgery Vascular Surgery; FAMILY PHYSICIAN Family Medicine
DX: I71.40 Abdominal aortic aneurysm, without rupture, unspecified (principal)
CPT/HCPCS: 36415; 80048

== ENCOUNTER → 2024-07-25 11:57 | Outpatient (REF) | payer MEDICARE, OTHER, SELFPAY | LOC: RAD 11:57 | PROVIDERS: ATTENDING PHYSICIAN Surgery Vascular Surgery; FAMILY PHYSICIAN Family Medicine | DX: I71.40 Abdominal aortic aneurysm, without rupture, unspecified (principal) | CPT/HCPCS: 74174; Q9967 ==

== ENCOUNTER → 2024-09-20 11:36 | Outpatient (REF) | payer MEDICARE, OTHER, SELFPAY ==
[2024-09-20 13:30] LABS: PSA, Total - Diagnostic 8.96 ng/ml (0.0-4.0)
== END ==
LOC: REG 11:36
PROVIDERS: ATTENDING PHYSICIAN Specialist
DX: R97.20 Elevated prostate specific antigen [PSA] (principal)
CPT/HCPCS: 36415; 84153

== ENCOUNTER → 2024-10-10 06:43 | Outpatient (REF) | payer MEDICARE, OTHER, SELFPAY | LOC: RCS 06:43 | PROVIDERS: ATTENDING PHYSICIAN Nurse Practitioner; FAMILY PHYSICIAN Family Medicine | DX: I48.0 Paroxysmal atrial fibrillation (principal) | CPT/HCPCS: 93306 ==

== ENCOUNTER → 2024-11-07 07:50 | Outpatient (REF) | payer MEDICARE, OTHER, SELFPAY ==
[2024-11-07 09:05] LABS: % Basophils 1.2 % (0-2); % Eosinophils 3.8 % (0-6); % Immature Granulocytes 0.5 % (0-0.5); % Lymphocytes 17.9 % (20.5-51.1); % Monocytes 9.5 % (1.7-9.3); % Neutrophils 67.1 % (42.2-75.2); Absolute Basophils 0.1 10^3/uL (0-0.2); Absolute Eosinophils 0.3 10^3/uL (0-0.7); Absolute Lymphocytes 1.4 10^3/uL (1.2-3.4); Absolute Monocytes 0.7 10^3/uL (0.1-0.6); Absolute Neutrophils 5.1 10^3/uL (1.4-6.5); Hematocrit 48.9 % (39.0-52.0); Hemoglobin 16.3 g/dL (13.0-18.0); Mean Corp Hgb Conc. 33.3 g/dL (33.0-37.0); Mean Corpuscular Hgb 30.9 pg (27.0-31.0); Mean Corpuscular Volume 92.8 fL (80.0-94.0); Mean Platelet Volume 8.9 fL (7.4-10.4); Nucleated Red Blood Cells % 0 % (-); Platelet Count 244 10^3/uL (130-400); Red Blood Cell Count 5.27 10^6/uL (4.70-6.10); Red Cell Dist. Width 13.5 % (11.5-14.5); White Blood Cell Count 7.6 10^3/uL (4.8-10.8)
[2024-11-07 09:28] LABS: ALT (SGPT) 48 U/L (0-50); AST (SGOT) 35 U/L (17-59); Albumin 4.8 g/dl (3.5-5.0); Alkaline Phosphatase 78 U/L (38-126); Blood Urea Nitrogen 31 mg/dl (9-20); Calcium 10.2 mg/dl (8.4-10.2); Carbon Dioxide 29 mmol/L (22-30); Chloride 106 mmol/L (98-107); Glucose 114 mg/dl (70-99); HDL Cholesterol 75 mg/dl; LDL Cholesterol, Calculated 74 mg/dl; Potassium 5.3 mmol/L (3.5-5.1); Sodium 144 mmol/L (135-145); Total Bilirubin 1.1 mg/dl (0.2-1.3); Total Cholesterol 172 mg/dl (50-199); Total Protein 7.6 g/dl (6.3-8.2); Triglyceride 118 mg/dl (10-149); Very Low Density Lipoprotein 23 mg/dl (0-30); eGFR > 60.00
[2024-11-07 09:50] LABS: PSA, Total - Diagnostic 7.35 ng/ml (0.0-4.0)
[2024-11-07 11:01] LABS: Glycohemoglobin (HgbA1c) 6.1 % (4.0-5.6)
== END ==
LOC: REG 07:50
PROVIDERS: ATTENDING PHYSICIAN Specialist; FAMILY PHYSICIAN Family Medicine
DX: E78.5 Hyperlipidemia, unspecified (principal); R73.01 Impaired fasting glucose; Z00.00 Encounter for general adult medical examination without abnormal findings; R97.20 Elevated prostate specific antigen [PSA]
CPT/HCPCS: 36415; 80053; 80061; 83036; 84153; 84443; 85025

== ENCOUNTER → 2025-05-11 10:53 | Outpatient (REF) | payer MEDICARE, OTHER, SELFPAY ==
[2025-05-11 12:17] LABS: PSA, Total - Diagnostic 7.09 ng/ml (0.0-4.0)
== END ==
LOC: REG 10:53
PROVIDERS: ATTENDING PHYSICIAN Specialist; FAMILY PHYSICIAN Family Medicine
DX: R97.20 Elevated prostate specific antigen [PSA] (principal)
CPT/HCPCS: 36415; 84153